=== PATIENT | male | born 1950 | race Caucasian/White ===

== ENCOUNTER 2019-02-13 09:22 | Observation (INO) | payer OTHER ==
[~2019-02-13] VITALS: Ht 177.8 cm; Wt 82.1 kg
[2019-02-13 10:08] LABS: EOSINOPHILS % (AUTO) 2.1 % (0.0-8.0); HEMATOCRIT 44.3 % (42-54); LYMPHOCYTES % (AUTO) 18.2 % (21.0-51.0); MEAN CORPUSCULAR HGB CONC 33.2 g/dL (32.0-36.0); MEAN CORPUSCULAR VOLUME 96.2 fL (79-99); MONOCYTES % (AUTO) 7.2 % (3.0-13.0); NEUTROPHILS % (AUTO) 71.5 % (40.0-77.0); PLATELET COUNT (AUTO) 177 K/uL (130-400); RED BLOOD CELL COUNT(AUTO) 4.61 MIL/uL (4.50-6.20); RED CELL DISTRIBUTION WIDTH 12.9 % (11.0-15.5); WHITE BLOOD COUNT (AUTO) 8.1 K/uL (4.8-10.8)
[2019-02-13 10:28] LABS: APPEARANCE,URINE Clear (CLEAR); BILIRUBIN,URINE Negative (NEGATIVE); COLOR,URINE Yellow (YELLOW); GLUCOSE, URINE (UA) Negative (NEGATIVE); KETONES,URINE Negative (NEGATIVE); LEUKOCYTE ESTERASE ,URINE Negative (NEGATIVE); NITRATE,URINE Negative (NEGATIVE); OCCULT BLOOD,URINE Negative (NEGATIVE); PROTEIN,URINE Negative (NEGATIVE); UROBILINOGEN,URINE 0.2 mg/dL (0.2-1.0)
[2019-02-13 11:10] LABS: CREATININE 1.1 mg/dL (0.5-1.5); POTASSIUM 4.2 mmol/L (3.5-5.1)
[2019-02-13 11:15] LABS: ALBUMIN 3.5 g/dL (3.5-5.0); BILIRUBIN,TOTAL 0.6 mg/dL (0.2-1.0); TOTAL PROTEIN, SERUM 6.7 g/dL (6.0-8.3)
[2019-02-13 11:50] LABS: AMPHET/METH SCREEN,URINE NEGATIVE (NEGATIVE); BARBITURATE SCREEN, URINE NEGATIVE (NEGATIVE); BENZODIAZEPINES SCREEN,URINE NEGATIVE (NEGATIVE); CANNABINOID SCREEN,URINE NEGATIVE (NEGATIVE); COCAINE SCREEN,URINE NEGATIVE (NEGATIVE); OPIATE SCREEN,URINE NEGATIVE (NEGATIVE); PHENCYCLIDINE SCREEN,URINE NEGATIVE (NEGATIVE)
[2019-02-13] MEDS ORDERED: LACTULOSE 20 GM/30 ML UDCUP PO PRN (13:15)
[2019-02-13] MEDS ORDERED: HYDRALAZINE HCL 20 MG/ML VIAL IV PRN (13:15)
[2019-02-13] MEDS ORDERED: MORPHINE SULFATE 2 MG/ML 1ML SYG IV PRN (13:15)
[2019-02-13] MEDS ORDERED: ACETAMINOPHEN 325 MG TAB PO PRN (13:15)
[2019-02-13] MEDS ORDERED: ONDANSETRON HCL 4 MG/2 ML VIAL IV PRN (13:15)
[2019-02-13] MEDS: NITROGLYCERIN 1GM/1 INCH PACKET TD SCH ×2 (13:15→20:54)
[2019-02-13 13:32] LABS: HEMOGLOBIN A1C 5.5 % (4.0-6.0)
[2019-02-13] MEDS ORDERED: SODIUM CHLORIDE 0.9% 500ML 500 ML IV SCH (15:33)
[2019-02-13 16:20] VITALS: BP 157/74
[2019-02-13] MEDS ORDERED: BRIM10DR16 OP (16:20)
[2019-02-13] MEDS ORDERED: SIMV40TA59 PO (16:20)
[2019-02-13] MEDS ORDERED: LOSA25TA41 PO (16:20)
[2019-02-13] MEDS ORDERED: ASPI-555 PO (16:20)
[2019-02-13] MEDS ORDERED: METO-391 PO (16:20)
[2019-02-13] MEDS ORDERED: LATA7.5D OP (16:20)
[2019-02-13 16:25] LABS: INR 1.04 (0.85-1.15); PARTIAL THROMBOPLASTIN TIME 30.2 SEC (26.3-35.5); PROTHROMBIN TIME 10.9 SEC (9.6-11.6)
[2019-02-13 16:30] LABS: HEMATOCRIT 44.9 % (42-54); MEAN CORPUSCULAR HEMOGLOBIN 32.1 pg (27.0-33.0); MEAN CORPUSCULAR HGB CONC 33.6 g/dL (32.0-36.0); MEAN CORPUSCULAR VOLUME 95.6 fL (79-99); PLATELET COUNT (AUTO) 203 K/uL (130-400); RED CELL DISTRIBUTION WIDTH 13.3 % (11.0-15.5); WHITE BLOOD COUNT (AUTO) 10.9 K/uL (4.8-10.8)
[2019-02-13 16:36] LABS: CREATINE KINASE, TOTAL 31 U/L (21-232); MYOGLOBIN 39 ng/mL (10-92); POTASSIUM 3.9 mmol/L (3.5-5.1); TROPONIN I < 0.04 ng/mL (0.00-0.06)
[2019-02-13 16:52] LABS: B-TYPE NATRIURETIC PEPTIDE 157 pg/mL (0-100)
[2019-02-13 19:49] VITALS: BP 129/73
[2019-02-13] MEDS: FAMOTIDINE/PF 20 MG/2 ML VIAL IV SCH (20:54)
[2019-02-13] MEDS: METOPROLOL TARTRATE 25 MG TAB PO SCH (20:54)
[2019-02-13 21:43] LABS: CREATINE KINASE, TOTAL 24 U/L (21-232); MYOGLOBIN 34 ng/mL (10-92); TROPONIN I < 0.04 ng/mL (0.00-0.06)
[2019-02-14] VITALS (14 sets, daily range): BP systolic 109–134; BP diastolic 61–74
[2019-02-14 04:11] LABS: CHOLESTEROL 97 mg/dL (<200); CREATINE KINASE, TOTAL 25 U/L (21-232); HDL CHOLESTEROL 74 mg/dL (29-71); LDL DIRECT 54 mg/dL (0-99); MYOGLOBIN 43 ng/mL (10-92); TRIGLYCERIDES 80 mg/dL (30-200); TROPONIN I < 0.04 ng/mL (0.00-0.06)
[2019-02-14] MEDS: NITROGLYCERIN 1GM/1 INCH PACKET TD SCH (04:18)
[2019-02-14] MEDS ORDERED: IOHEXOL-350 50ML VIAL IV ONE (07:24)
[2019-02-14] MEDS ORDERED: NITROGLYCERIN 5 MG/ML 10 ML VIAL IV ONE (07:24)
[2019-02-14] MEDS ORDERED: IOHEXOL 350 MG/ML 100ML INFUS..BTL IV ONE ×2 (07:24→08:04)
[2019-02-14] MEDS ORDERED: LIDOCAINE HCL 2% 20ML ONE (07:24)
[2019-02-14] MEDS ORDERED: ASPIRIN 325MG EC TAB 325 MG TABLET.DR PO ONE (08:32)
[2019-02-14] MEDS ORDERED: BIVALIRUDIN 250 MG/VIAL IV ONE (08:34)
[2019-02-14] MEDS ORDERED: TICAGRELOR 90 MG TABLET ONE (08:35)
[2019-02-14] MEDS ORDERED: ADENOSINE 90MG/30ML VIAL IV ONE (08:58)
[2019-02-14] MEDS ORDERED: ASPIRIN 325 MG TABLET PO SCH (09:00)
[2019-02-14] MEDS: METOPROLOL TARTRATE 25 MG TAB PO SCH ×2 (09:00→20:53)
[2019-02-14] MEDS ORDERED: ENOXAPARIN SODIUM 40 MG/0.4 ML SYRINGE SQ SCH (09:00)
[2019-02-14] MEDS ORDERED: ASPIRIN 81 MG EC TAB PO SCH (09:00)
[2019-02-14] MEDS ORDERED: SODIUM CHLORIDE 0.9% 1000ML 1,000 ML IV SCH (09:24)
[2019-02-14] MEDS: FAMOTIDINE/PF 20 MG/2 ML VIAL IV SCH ×2 (10:10→20:50)
[2019-02-14] MEDS: TICAGRELOR 90 MG TABLET PO SCH (20:50)
[2019-02-14] MEDS ORDERED: ATORVASTATIN CALCIUM 40 MG TABLET PO SCH (21:00)
[2019-02-15 03:46] VITALS: BP 114/68
[2019-02-15 03:46] LABS: HEMATOCRIT 41.4 % (42-54); MEAN CORPUSCULAR HEMOGLOBIN 32.1 pg (27.0-33.0); MEAN CORPUSCULAR HGB CONC 33.6 g/dL (32.0-36.0); MEAN CORPUSCULAR VOLUME 95.4 fL (79-99); PLATELET COUNT (AUTO) 176 K/uL (130-400); RED BLOOD CELL COUNT(AUTO) 4.35 MIL/uL (4.50-6.20); RED CELL DISTRIBUTION WIDTH 13.1 % (11.0-15.5); WHITE BLOOD COUNT (AUTO) 9.9 K/uL (4.8-10.8)
[2019-02-15 04:14] LABS: CREATININE 1.3 mg/dL (0.5-1.5); POTASSIUM 4.1 mmol/L (3.5-5.1)
[2019-02-15 07:45] VITALS: BP 123/64
[2019-02-15] MEDS ORDERED: ASPIRIN 81 MG EC TAB PO SCH (09:00)
[2019-02-15] MEDS: TICAGRELOR 90 MG TABLET PO SCH (09:19)
[2019-02-15] MEDS: FAMOTIDINE/PF 20 MG/2 ML VIAL IV SCH (09:20)
[2019-02-15] MEDS: METOPROLOL TARTRATE 25 MG TAB PO SCH (09:20)
[2019-02-15] MEDS ORDERED: TICA90TA PO (10:06)
[2019-02-15 11:50] VITALS: BP 114/63
--- NOTE | 2019-02-15 15:30 | NUR ---
GIVEN DISMISSAL INSTRUCTIONS AND SCRIPTS FOR BRILINTA AND BABY ASPIRIN. VERBALIZED UNDERSTANDING. REMOVED TELE PACK, REMOVED SALINE LOCK FROM RIGHT HAND, IV SITE WITHOUT REDNESS NOTED. PATIENT STATED HE GOES TO [facility] AND WILL STOP BY DR. Damian LOYA'S OFFICE FOR SAMPLES OF BRILINTA TO START OFF TREATMENT. TAKEN TO PRIVATE CAR ALONG WITH PERSONAL BELONGINGS VIA WHEELCHAIR BY FAHAD, JIMMY.
== END 2019-02-15 15:28 | disposition home or self-care (01) ==
LOC: EDH 09:22 → EDHIP 13:13 → 2DH 15:43
PROVIDERS: ADMIT Internal Medicine; ATTEND Internal Medicine
DX: I25.110 Atherosclerotic heart disease of native coronary artery with unstable angina pectoris (principal); I25.82 Chronic total occlusion of coronary artery; E78.5 Hyperlipidemia, unspecified; I10 Essential (primary) hypertension; I25.2 Old myocardial infarction; F17.200 Nicotine dependence, unspecified, uncomplicated; Z95.1 Presence of aortocoronary bypass graft; Z82.49 Family history of ischemic heart disease and other diseases of the circulatory system; Z79.01 Long term (current) use of anticoagulants; Z79.899 Other long term (current) drug therapy
CPT/HCPCS: 36415 ×3; 71045; 80048; 80053; 80061; 80305; 81003; 82550 ×3; 83036; 83874 ×3; 83880; 84484 ×4; 85025; 85027 ×2; 85610; 85730; 93005 ×4; 93306; 93459; 96374; 96376 ×2; 99291; C1760 ×2; C1769 ×3; C1874; C1887; C1894 ×2; C9600; G0378 ×50; J0153; J0583; J1644 ×2; J3490 ×6; J7030; Q9965 ×2; Q9967 ×3